=== PATIENT | female | born 1950 | race Caucasian/White ===

== ENCOUNTER 2018-03-27 10:10 | Emergency (ER) | payer BC, OTHER ==
[2018-03-27 10:29] VITALS: TEMP 99.6; BMI 26.2
[2018-03-27 11:57] LABS: BASO % 0.9 % (0-2.0); HEMATOCRIT 40.9 % (32.4-45.2); HEMOGLOBIN 13.7 GM/dL (10.7-15.3); LYMPH % 33.1 % (8-40); MCH 32.2 pg (25.7-33.7); MCHC 33.5 g/dl (32.0-36.0); MEAN CELL VOLUME 96.1 fl (80-96); MEAN PLT VOLUME 6.9 fl (7.5-11.1); MONO % 9.2 % (3.8-10.2); NEUT % 55.8 % (42.8-82.8); PLATELET COUNT 359 K/MM3 (134-434); RBC 4.25 M/mm3 (3.60-5.2); RDW 12.1 % (11.6-15.6); WHITE BLOOD COUNT 7.9 K/mm3 (4.0-10.0)
[2018-03-27 11:58] LABS: URINE APPEARANCE CLEAR; URINE BILIRUBIN NEGATIVE (<2.0 mg/dL); URINE COLOR YELLOW; URINE GLUCOSE (UA) NEGATIVE (NEGATIVE); URINE KETONE NEGATIVE (NEGATIVE); URINE LEUK ESTERASE NEGATIVE (NEGATIVE); URINE NITRITE NEGATIVE (NEGATIVE); URINE PROTEIN NEGATIVE (NEGATIVE); URINE UROBILINOGEN NEGATIVE mg/dL (0.2-1.0)
--- NOTE | 2018-03-27 12:08 | PDOC ---
History of Present Illness - General Chief Complaint: Rectal Bleed Stated Complaint: BLOOD IN STOOL Time Seen by Provider: 03/27/18 10:52 History Source: Patient Exam Limitations: No Limitations - History of Present Illness Travel History: No Initial Comments: 03/27/18 11:03 67-year-old female with no past medical history presents to ED with complaints of left lower quadrant pain for the past 2 days now associated with bright red blood and upon defecation 2 since midnight last night. Patient denies fever, chills, weakness nausea, abdominal distention, history of diverticulitis, colitis, recent travel, or recent illness. Denies history of hemorrhoids, current rectal pain, but states has been constipated intermittently for the past few weeks. Timing/Duration: reports: intermittent Quality: reports: mild, cramping Abdominal Pain Onset Location: reports: LLQ, suprapubic Pain Radiation: reports: no radiation Activities at Onset: reports: none Aggravating Factors: improves with: None Alleviating Factors: improves with: None Past History - Travel Traveled outside of the country in the last 30 days: No - Past Medical History Allergies/Adverse Reactions: Allergies Allergy/AdvReac Type Severity Reaction Status Date / Time No Known Allergies Allergy Verified 03/27/18 10:24 Home Medications: Ambulatory Orders NK [No Known Home Medication] 03/27/18 CVA: No COPD: No - Suicide/Smoking/Psychosocial Hx Smoking History: Never smoked Hx Alcohol Use: No Drug/Substance Use Hx: No Patient Lives Alone: No Abd/GI Specific PMHX - Complaint Specific PMHX Colitis: No Diverticulitis: No GERD: No GI Ulcer Disease: No Review of Systems - Review of Systems Able to Perform ROS?: Yes Constitutional: No: Symptoms Reported HEENTM: No: Symptoms Reported Respiratory: No: Symptoms reported Cardiac (ROS): No: Symptoms Reported ABD/GI: Yes: Constipated, Rectal Bleeding, Abdominal cramping : No: Symptoms Reported Musculoskeletal: No: Symptoms Reported Integumentary: No: Symptoms Reported Neurological: No: Symptoms reported Hematologic/Lymphatic: No: Symptoms Reported *Physical Exam - Vital Signs Last Vital Signs Temp Pulse Resp BP Pulse Ox 99.6 F 78 18 147/84 03/27/18 10:24 03/27/18 10:24 03/27/18 10:24 03/27/18 10:24 - Physical Exam General Appearance: Yes: Nourished, Appropriately Dressed. No: Apparent Distress HEENT: negative: Pale Conjunctivae Respiratory/Chest: positive: Lungs Clear, Normal Breath Sounds. negative: Respiratory Distress, Accessory Muscle Use Cardiovascular: positive: Regular Rhythm, Regular Rate Gastrointestinal/Abdominal: positive: Normal Bowel Sounds, Soft, Tenderness ( left lower quadrant left suprapubic). negative: Distended, Guarding, Rebound Rectal Exam: positive: heme positive stool (pink mucousy) Integumentary: positive: Normal Color, Warm, Moist Neurologic: positive: Motor Strength 5/5 (ambulatory) ED Treatment Course - LABORATORY CBC & Chemistry Diagram: 03/27/18 11:51 03/27/18 11:51 - ADDITIONAL ORDERS Additional order review: Laboratory Results 03/27/18 03/27/18 11:51 11:51 Urine Color Yellow Urine Appearance Clear Urine pH 8.0 Ur Specific [place] 1.011 Urine Protein Negative Urine Glucose (UA) Negative Urine Ketones Negative Urine Blood Negative Urine Nitrite Negative Urine Bilirubin Negative Urine Urobilinogen Negative Ur Leukocyte Esterase Negative Stool Occult Blood Negative 03/27/18 11:51 RBC 4.25 MCV 96.1 H MCHC 33.5 RDW 12.1 MPV 6.9 L Neutrophils % 55.8 Lymphocytes % 33.1 Monocytes % 9.2 Eosinophils % 1.0 Basophils % 0.9 - RADIOLOGY Radiology Studies Ordered: Category Date Time Status ABDOMEN & PELVIS CT WITH CONTR [CT] Stat CT Scan 03/27/18 11:30 Ordered Medical Decision Making - Medical Decision Making 03/27/18 11:12 Chief complaint: Rectal bleeding 3 upon defecation with left lower quadrant pain. Exam: Tenderness to the left lower quadrant left suprapubic. [place] mucousy stool noted in fold. No hemorrhoids . Rectal vault nontender and small Plan: Labs, urine, CAT scan stool for guaiac testing 03/27/18 12:19 Laboratory Tests 03/27/18 03/27/18 11:51 11:51 WBC 7.9 Hgb 13.7 Hct 40.9 MCV 96.1 H MPV 6.9 L Stool Occult Blood Negative 03/27/18 16:02 CT of the abdomen shows nodefinitive CT findings of acute pathology identified. No gross small bowel pathology is identified 03/27/18 16:03 Laboratory Tests 03/27/18 03/27/18 03/27/18 11:51 11:51 11:51 Plt Count 359 Sodium Potassium Chloride Carbon Dioxide Anion Gap BUN Random Glucose Calcium Total Bilirubin AST ALT Alkaline Phosphatase Total Protein Albumin Urine Ketones Negative Urine Nitrite Negative Ur Leukocyte Esterase Negative Stool Occult Blood Negative 03/27/18 11:51 Plt Count Sodium 140 Potassium 4.1 Chloride 105 Carbon Dioxide 27 Anion Gap 8 BUN 10 Random Glucose 90 Calcium 9.1 Total Bilirubin 0.4 AST 23 ALT 22 Alkaline Phosphatase 83 Total Protein 7.8 Albumin 4.3 Urine Ketones Urine Nitrite Ur Leukocyte Esterase Stool Occult Blood 03/27/18 16:14 The pt has had no episodes of defecation or rectal bleeding since arrival. Patient be given a GI referral along with copy of her CAT scan and lab work. patient also understands if symptoms recur insides to develop dizziness weakness or severe abdominal pains return to the ED sooner. *DC/Admit/Observation/Transfer Diagnosis at time of Disposition: Rectal bleeding - Discharge Dispostion Disposition: HOME Condition at time of disposition: Good - Referrals Referrals: Hugo Nieto DO [Staff Physician] - - Patient Instructions Printed Discharge Instructions: DI for Rectal Bleeding Additional Instructions: [facility] and take copy of her blood work and CAT scan with you. If you develop worsening abdominal pain, having rectal bleeding or weakness please return to the nearest ER. - Post Discharge Activity
[2018-03-27 12:20] LABS: ALBUMIN 4.3 g/dl (3.4-5.0); ALK PHOS 83 U/L (45-117); ANION GAP 8 MMOL/L (8-16); BILIRUBIN,TOTAL 0.4 mg/dL (0.2-1); BLOOD UREA NITROGEN 10 mg/dL (7-18); CALCIUM 9.1 mg/dL (8.5-10.1); CHLORIDE 105 mmol/L (98-107); CO2 27 mmol/L (21-32); CREATININE 0.5 mg/dL (0.55-1.3); GLUCOSE,RANDOM 90 mg/dL (74-106); POTASSIUM 4.1 mmol/L (3.5-5.1); SGOT/AST 23 U/L (15-37); SGPT/ALT 22 U/L (13-61); SODIUM 140 mmol/L (136-145); TOT PROT 7.8 g/dl (6.4-8.2)
[2018-03-27 14:31] VITALS: BP 142/84; PULSE 69
== END 2018-03-27 16:27 | disposition home or self-care (01) ==
LOC: JER 10:10
DX: K62.5 Hemorrhage of anus and rectum (principal)
CPT/HCPCS: 36415; 74177-TC; 80053; 81003; 82272; 85025; 86850; 86900; 86901; 87086; 99282-25; Q9967